=== PATIENT | female | born 2000 | race Caucasian/White ===

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

== ENCOUNTER 2023-09-21 11:42 | Emergency (ER) | payer OTHER ==
[~2023-09-21] VITALS: Ht 167.6 cm; Wt 64.9 kg
[2023-09-21 11:52] VITALS: BP 94/69; PULSE 105; RESP 16; TEMP 98.2; O2SAT 96
[2023-09-21] MEDS ORDERED: NIRM1TAB9 PO (12:32)
[2023-09-21 13:23] LABS: FLU A ANTIGEN negative (NEGATIVE); FLU B ANTIGEN negative (NEGATIVE)
== END 2023-09-21 12:45 | disposition home or self-care (01) ==
LOC: MED 11:42
DX: U07.1 COVID-19 (principal); Z79.899 Other long term (current) drug therapy
CPT/HCPCS: 99283